=== PATIENT | female | born 1980 | race Caucasian/White ===

== ENCOUNTER → 2018-10-18 | Outpatient (CLI) | payer OTHER ==
[2018-10-18] MEDS: IOHEXOL 300 MG/ML 75 ML VIAL. IV ONE (08:25)
--- NOTE | 2018-10-18 09:44 | RAD ---
EXAM: CT Chest with IV contrast CLINICAL HISTORY: Epigastric and pain at sternum for two months duration. COMPARISON: None. TECHNIQUE: CT of the chest following the administration of intravenous contrast. Axial, coronal and sagittal reformatted images were generated. ---PQRS compliance statement - One or more of the following individualized dose reduction techniques were utilized for this study: 1. Automated exposure control 2. Adjustment of the mA and/or kV according to patient size 3. Use of iterative reconstruction technique--- FINDINGS: CHEST: The heart is borderline enlarged. No pericardial effusion. No mediastinal or hilar lymphadenopathy. No axillary lymphadenopathy. No pleural effusion or pneumothorax. No suspicious lung nodule or mass is seen. Visualized Upper abdomen: Cholecystectomy clips are seen. Hepatic hypoattenuation likely hepatic steatosis. Bones: Degenerative changes of spine are seen. The sternum is intact. IMPRESSION: 1. The lungs are clear. No pleural effusion or pneumothorax 2. Hepatic hypoattenuation may be seen with hepatic steatosis. 3. There has been a cholecystectomy. Electronically signed by: Michael Wolff MD (10/18/2018 9:42 AM) [facility]
== END | disposition home or self-care (01) ==
LOC: CT 07:34
PROVIDERS: ATTEND Internal Medicine Gastroenterology
DX: R10.13 Epigastric pain (principal); R07.9 Chest pain, unspecified; Z90.49 Acquired absence of other specified parts of digestive tract
CPT/HCPCS: 71260; Q9967